=== PATIENT | female | born 1925 | race Caucasian/White ===

== ENCOUNTER 2016-06-21 12:25 | Day surgery (SDC) | payer MEDICARE ==
[~2016-06-21 12:25] MED LIST: ANTIVERT12.5 M1 PO; BIOTIN5000 MCG PO; BIOTIN800 MCG PO; CALCIUM500 MG PO; CALCIUM600 M1 PO; CHONDROITIN; CHONDROITIN SU250 MG PO; CO Q-10100 M2 PO; ENTOCORT EC3 M1 PO; ENTOCORT EC3 MG; EVISTA; EVISTA60 MG; FENOFIBRATE160 MG PO; FISH OIL 1,2001 CAP PO; FISH OIL 1,2001 EAC4 PO; FOLIC ACID0.4 M1 PO; FOLIC ACID0.8 MG PO; FOSAMAX70 MG PO; GARLIC1000 M1 PO; GINKGO BILOBA PO; GLUCOSAMINE 1,1 EACH PO; GLUCOSAMINE H1500 MG PO; HYDROCHLOROTHIA25 M1 PO; KEFLEX500 M4 PO; LEVOTHYROXINE50 MC3 PO; LEVOTHYROXINE75 MC3 PO; LISINOPRIL-HCTZ; LISINOPRIL20 M1 PO; MOVANA300 MG PO; MULTIPLE VITAM1 EAC3 PO; NORVASC5 M2 PO; POTASSIUM CHLO20 ME3 PO; POTASSIUM PO; POTASSIUM-9999 MG PO; SYNTHROID75 MCG; THYROID MED; TRIGLIDE160 M1 PO; TYLENOL EXTRA500 M1 PO; TYLENOL325 M2 PO; TYLENOL500 MG; VALTURNA 300-31 EACH PO; VERAPAMIL; VITAMIN B-121000 MC1 PO; VITAMIN C1000 M1 PO; VITAMIN D31000 UNI3 PO; VITAMIN D32000 UNI2 PO; VITAMIN E400 UNI4 PO; WELCHOL625 M1 PO; WELCHOL625 MG PO; XARELTO15 M1 PO; ZINC50 M2 PO; [UNRECOGNIZED DRUG - OTHER]; prevastatin
[2016-06-21] MEDS ORDERED: PROBIOTIC GOLD1 EACH PO (13:54)
[2016-06-21] MEDS ORDERED: BEANO300 UNIT PO (13:55)
[2016-06-21] MEDS ORDERED: POTASSIUM CHLO10 ME1 PO (13:56)
[2016-06-21] MEDS ORDERED: DEMADEX20 M1 PO (13:56)
[2016-06-21 13:57] LABS: BASO % 0.6 % (0-2); EOSINOPHIL ABSOLUTE COUNT 0.1 tho/cmm (0.0-0.7); HCT-HEMATOCRIT 31.5 % (34.0-49.0); HGB-HEMOGLOBIN 10.6 gm/dl (12.0-15.5); IMMATURE GRANULOCYTES ABSOLUTE 0.01 tho/cmm (0-0.03); IMMATURE GRANULOCYTES PERCENT 0.1 % (0-0.3); LYMPH % 24.2 % (20-45); LYMPH ABSOLUTE COUNT 1.7 tho/cmm (0.8-4.5); MCH (MEAN CORPUSCULAR HGB) 31.2 pg (28.0-32.0); MCHC MEAN CORPUSCULAR HGB CONC 33.7 % (32.0-36.0); MCV (MEAN CELL VOLUME) 92.6 fl (82.0-96.0); MEAN PLATELET VOLUME 10.3 cmc (9.4-12.4); MONO % 12.7 % (0-12); MONOCYTE ABSOLUTE COUNT 0.9 tho/cmm (0.0-1.2); NEUTROPHIL ABSOLUTE COUNT 4.2 tho/cmm (1.6-8.0); NEUTROPHIL-AUTOMATED 4.2 tho/cmm (1.6-8.0); NEUTROPHILS % 60.4 % (40-80); PLATELET COUNT 230 tho/cmm (150-450); RED CELL DISTRIBUTION WIDTH 13.9 % (12.4-16.4); WHITE BLOOD COUNT 6.9 tho/cmm (4.0-10.0)
[2016-06-21] MEDS ORDERED: COREG3.125 M1 PO ×2 (13:57→13:58)
[2016-06-21] MEDS ORDERED: LOTENSIN20 M1 PO (13:57)
[2016-06-21] MEDS ORDERED: PANTOPRAZOLE SO40 M3 PO (13:59)
[2016-06-21 14:18] LABS: ANION GAP 13 mmol/L (0-20); BLOOD UREA NITROGEN 32 mg/dl (6-24); CALCIUM 9.4 mg/dl (8.5-10.5); CARBON DIOXIDE-VENOUS 24 mmol/L (22-32); CHLORIDE 105 mmol/l (96-110); CREATININE 1.25 mg/dl (0.50-1.10); GLUCOSE 103 mg/dL (70-110); POTASSIUM 3.8 mmol/L (3.7-5.1); SODIUM 138 mmol/L (135-145); eGFR VALUE FOR BLACK 44 mL/Min
[2016-06-22] MEDS ORDERED: NORCO 5-325 TA1 EACH PO (11:14)
== END 2016-06-22 13:30 ==
LOC: SHSB 12:25 → ORW 16:21 → PACU 16:41 → SHSB 18:39 → 5WF 20:02
PROVIDERS: Anesthesiology
PROC: 0DTJ4ZZ Resection of Appendix, Percutaneous Endoscopic Approach (ICD-10-PCS; principal; 2016-06-21)
DX: K35.80 Unspecified acute appendicitis (principal); I10 Essential (primary) hypertension; I83.90 Asymptomatic varicose veins of unspecified lower extremity; M19.90 Unspecified osteoarthritis, unspecified site; E66.9 Obesity, unspecified; E03.9 Hypothyroidism, unspecified; M81.0 Age-related osteoporosis without current pathological fracture; H91.90 Unspecified hearing loss, unspecified ear; Z79.01 Long term (current) use of anticoagulants; Z79.899 Other long term (current) drug therapy; Z88.2 Allergy status to sulfonamides; Z91.048 Other nonmedicinal substance allergy status; Z87.891 Personal history of nicotine dependence; Z86.19 Personal history of other infectious and parasitic diseases; Z86.718 Personal history of other venous thrombosis and embolism; Z90.89 Acquired absence of other organs; Z90.12 Acquired absence of left breast and nipple; Z97.4 Presence of external hearing-aid; Z98.890 Other specified postprocedural states
CPT/HCPCS: C1713; J1335; J7030; Q9967